=== PATIENT | female | born 1985 | race Caucasian/White ===

== ENCOUNTER 2022-02-23 17:56 | Emergency (ER) | payer SELFPAY ==
[2022-02-23] MEDS ORDERED: Sodium Chloride 0.9% 10 ML Syringe FLUSH PRN (18:25)
[2022-02-23] MEDS ORDERED: Sodium Chloride 0.9% 2.5 ML Syringe FLUSH PRN (18:25)
[2022-02-23] MEDS ORDERED: Sodium Chloride 0.9% 1,000 ML IV ONE (18:31)
[2022-02-23 19:05] LABS: BLOOD UREA NITROGEN,BUN 8 mg/dL (7.0-18.0); CHLORIDE,CL 102 mmol/L (98-107); GLUCOSE RANDOM 127 mg/dL (74-106); POTASSIUM,K 3.5 mmol/L (3.5-5.1); SODIUM,NA 138 mmol/L (136-145)
[2022-02-23 19:09] LABS: ESTIMATED GFR 98 mL/min (>60)
[2022-02-23] MEDS ORDERED: Iopamidol 755 MG/ML 500 ML Multipack Bottle IVPUSH ONE (20:00)
[2022-02-23] MEDS ORDERED: Ketorolac 30 MG/ML SDV IVPUSH ONE (21:07)
[2022-02-23 21:14] VITALS: BP 103/66
[2022-02-23] MEDS ORDERED: cefTRIAXone 1 GM in Sodium Chloride 0.9% 50 ML IV ONE (21:40)
[2022-02-23 22:18] VITALS: PULSE 106
== END 2022-02-23 22:09 | disposition home or self-care (01) ==
LOC: MW.ED 17:56
DX: T83.32XA Displacement of intrauterine contraceptive device, initial encounter (principal); N39.0 Urinary tract infection, site not specified; K59.00 Constipation, unspecified; F19.10 Other psychoactive substance abuse, uncomplicated; Z88.0 Allergy status to penicillin; Z88.1 Allergy status to other antibiotic agents; Z20.822 Contact with and (suspected) exposure to COVID-19
CPT/HCPCS: 36415; 74177; 80053; 80305; 81001; 81025; 85025; 87086; 87088; 87186; 87635; 93005; 96361; 96374; 96375; 99284; J0696; J1885; J3490; J7030; Q9967; 83690; U0002